=== PATIENT | female | born 1950 ===

== ENCOUNTER 2018-04-28 11:41 | Emergency (ER) | payer MEDICARE, MEDICAID ==
[2018-04-28 11:51] VITALS: RESP 18; TEMP 98.4; O2SAT 99
--- NOTE | 2018-04-28 13:47 | RAD ---
Date of service: 04/28/2018 PROCEDURE: CHEST RADIOGRAPH, 1 VIEW HISTORY: choking COMPARISON: None available. FINDINGS: LUNGS: Clear. PLEURA: No pneumothorax or pleural fluid seen. CARDIOVASCULAR: Normal. OSSEOUS STRUCTURES: No significant abnormalities. VISUALIZED UPPER ABDOMEN: Normal. OTHER FINDINGS: None. IMPRESSION: No active disease.
--- NOTE | 2018-04-28 13:47 | RAD ---
Date of service: 04/28/2018 PROCEDURE: Soft tissue neck HISTORY: choking COMPARISON: TECHNIQUE: Two views FINDINGS: There is no swelling of the epiglottis or retropharyngeal space. IMPRESSION: Negative study
--- NOTE | 2018-04-28 13:56 | ED PDOC ---
Arrival/HPI - General Chief Complaint: ENT Problem Time Seen by Provider: 04/28/18 12:13 Historian: Patient - History of Present Illness Narrative History of Present Illness (Text): 04/28/18 12:15 67 year old female, whose past medical history includes thyroid disease and breast ca with bilateral mastectomy, who presents to the Emergency department for throat irritation after choking on a piece of meyer prior to arrival. Patient states she was eating meyer when a piece got stuck in her throat. Her son helped her cough out the piece of meyer, which caused her to vomit and get rid of the meyer. Patient notes a light headache. Patient denies any fever, chills, nausea, diarrhea, urinary symptoms, back pain, neck pain, dizziness, or any other complaints. Time/Duration: Prior to Arrival Symptom Onset: Sudden Symptom Course: Improving Activities at Onset: Eating (was eating a piece of meyer) Context: Home Past Medical History - Provider Review Nursing Documentation Reviewed: Yes - Cardiac Hx Cardiac Disorders: Yes Hx Cardiac Arrhythmia: Yes - Pulmonary Hx Respiratory Disorders: Yes Hx Pneumonia: Yes - Neurological Hx Neurological Disorder: No - HEENT Hx HEENT Disorder: No - Renal Hx Renal Disorder: No - Endocrine/Metabolic Hx Endocrine Disorders: Yes Hx Hypothyroidism: Yes - Hematological/Oncological Hx Blood Disorders: Yes Hx Cancer: Yes (breast) - Integumentary Hx Dermatological Disorder: No - Musculoskeletal/Rheumatological Hx Musculoskeletal Disorders: Yes Hx Arthritis: Yes Hx Back Pain: Yes Hx Unsteady Gait: Yes (cane) - Gastrointestinal Hx Gastrointestinal Disorders: No - Genitourinary/Gynecological Hx Genitourinary Disorders: No - Psychiatric Hx Psychophysiologic Disorder: Yes Hx Anxiety: Yes Hx Depression: Yes Hx Substance Use: No - Surgical History Hx Mastectomy: Yes (double) Hx Tonsillectomy: Yes - Anesthesia Hx Anesthesia: Yes Hx Anesthesia Reactions: No Family/Social History - Physician Review Nursing Documentation Reviewed: Yes Family/Social History: No Known Family HX Smoking Status: Never Smoked Hx Alcohol Use: No Hx Substance Use: No Allergies/Home Meds Allergies/Adverse Reactions: Allergies banana Allergy (Verified 04/28/18 11:56) ANAPHYLAXIS nut - unspecified Allergy (Verified 04/28/18 11:56) ANAPHYLAXIS Review of Systems - Physician Review All systems were reviewed & negative as marked: Yes - Review of Systems Constitutional: Normal. absent: Fevers Eyes: Normal ENT: Normal Respiratory: Normal. absent: SOB, Cough Cardiovascular: Normal. absent: Chest Pain Gastrointestinal: Vomiting (Patient notes vomiting to get piece of meyer out of throat. ). absent: Normal, Diarrhea, Nausea Genitourinary Female: Normal Musculoskeletal: Normal Skin: Normal Neurological: Headache (patient notes light headache. ). absent: Normal Endocrine: Normal Hemo/Lymphatic: Normal Psychiatric: Normal Physical Exam Vital Signs Reviewed: Yes Vital Signs Temp Pulse Resp BP Pulse Ox 04/28/18 14:09 71 18 118/68 99 04/28/18 14:06 71 18 118/68 99 04/28/18 11:50 98.4 F 76 18 117/46 L 99 Temperature: Afebrile Blood Pressure: Hypotensive Pulse: Regular Respiratory Rate: Normal Appearance: Positive for: Well-Appearing, Non-Toxic, Comfortable Pain Distress: None Mental Status: Positive for: Alert and Oriented X 3 - Systems Exam Head: Present: Atraumatic, Normocephalic Pupils: Present: PERRL Extroacular Muscles: Present: EOMI Conjunctiva: Present: Normal Mouth: Present: Moist Mucous Membranes Pharnyx: Present: ERYTHEMA (mild erythema), Soft Palate/Uvular Edema (uvula midline. some erythema. ). No: Normal Neck: Present: Normal Range of Motion Respiratory/Chest: Present: Clear to Auscultation, Good Air Exchange, Other (no stridor. ). No: Respiratory Distress, Accessory Muscle Use Cardiovascular: Present: Regular Rate and Rhythm, Normal S1, S2. No: Murmurs Abdomen: No: Tenderness, Distention, Peritoneal Signs Back: Present: Normal Inspection Upper Extremity: Present: Normal Inspection. No: Cyanosis, Edema Lower Extremity: Present: Normal Inspection. No: Edema Neurological: Present: GCS=15, CN II-XII Intact, Speech Normal Skin: Present: Warm, Dry, Normal Color. No: Rashes Psychiatric: Present: Alert, Oriented x 3, Normal Insight, Normal Concentration Medical Decision Making ED Course and Treatment: 04/28/18 12:15 Impression: 67 year old female presents to the Emergency department for throat irritation after choking on a piece of meyer prior to arrival. Plan: -- X-Ray of chest, one view -- Lidocaine 2% Viscous 15 ml MM -- X-Ray of neck soft tissue -- Reassess and disposition Progress Notes: X-Ray of chest reviewed by radiologist, shows: Dictator : Brody Baldwin MD Report Date : 04/28/2018 13:46:10 FINDINGS: LUNGS: Clear. PLEURA: No pneumothorax or pleural fluid seen. CARDIOVASCULAR: Normal. OSSEOUS STRUCTURES: No significant abnormalities. VISUALIZED UPPER ABDOMEN: Normal. OTHER FINDINGS: None. IMPRESSION: No active disease. X-Ray of soft tissue neck reviewed by radiologist, shows: Dictator : Brody Baldwin MD Report Date : 04/28/2018 13:45:34 FINDINGS: There is no swelling of the epiglottis or retropharyngeal space. IMPRESSION: Negative study. - RAD Interpretation Radiology Orders: 04/28/18 12:15 CHEST ONE VIEW [RAD] Stat NECK SOFT TISSUE [RAD] Stat Neurology Hospitalist: Radiologist - Medication Orders Current Medication Orders: Discontinued Medications Lidocaine HCl (Lidocaine 2% Viscous) 15 ml MM STAT STA Stop: 04/28/18 12:16 Last Admin: 04/28/18 12:34 Dose: 15 ml - Scribe Statement The provider has reviewed the documentation as recorded by the Scribe Lucy Bearden All medical record entries made by the Scribe were at my direction and personally dictated by me. I have reviewed the chart and agree that the record accurately reflects my personal performance of the history, physical exam, medical decision making, and the department course for this patient. I have also personally directed, reviewed, and agree with the discharge instructions and disposition. Disposition/Present on Arrival - Present on Arrival Any Indicators Present on Arrival: No History of DVT/PE: No History of Uncontrolled Diabetes: No Urinary Catheter: No History of Decub. Ulcer: No History Surgical Site Infection Following: None - Disposition Have Diagnosis and Disposition been Completed?: Yes Diagnosis: Choking Disposition: HOME/ ROUTINE Disposition Time: 14:09 Patient Plan: Discharge Condition: IMPROVED Discharge Instructions (ExitCare): Choking Referrals: Winter Delacruz MD [Primary Care Provider] - Follow up with primary Forms: [employer] (I[place]ic)
[2018-04-28 14:09] VITALS: BP 118/68; PULSE 71
== END 2018-04-28 14:09 | disposition home or self-care (01) ==
LOC: ED 11:41
DX: R09.89 Other specified symptoms and signs involving the circulatory and respiratory systems (principal); E03.9 Hypothyroidism, unspecified; Z87.01 Personal history of pneumonia (recurrent)